=== PATIENT | female | born 1980 | race Caucasian/White ===

== ENCOUNTER 2017-09-22 16:42 | Emergency (ER) | payer MEDICAID, OTHER ==
[~2017-09-22] VITALS: Ht 175.3 cm; Wt 60.0 kg
[2017-09-22] MEDS ORDERED: IBUP-1022 PO (16:59)
[2017-09-22] MEDS ORDERED: TYLE325T5 PO (16:59)
[2017-09-22] MEDS ORDERED: PERCOCET 5MG/325MG TAB PO ONE (18:30)
[2017-09-22] MEDS ORDERED: PERC5TAB12 PO (18:35)
[2017-09-22 18:45] VITALS: BP 154/84
--- NOTE | 2017-09-23 09:51 | REP ---
RIGHT KNEE, FIVE VIEWS: There is no evidence of an acute fracture, dislocation or intrinsic bone disease. IMPRESSION: No fracture or dislocation. Signed by Migel Roberts MD 09/23/2017 05:29 P
== END 2017-09-22 18:51 | disposition home or self-care (01) ==
LOC: M ED 16:42
DX: M25.561 Pain in right knee (principal); X58.XXXA Exposure to other specified factors, initial encounter; Y92.9 Unspecified place or not applicable; Y93.39 Activity, other involving climbing, rappelling and jumping off; Y99.9 Unspecified external cause status; Z87.891 Personal history of nicotine dependence

== ENCOUNTER → 2017-09-25 | Outpatient (REF) | payer OTHER ==
[~2017-09-25] MED LIST: ASPI325T PO; IBUP-1022 PO; MORP15TASA PO; PERC5TAB12 PO; TYLE325T5 PO
[2017-09-25 16:43] LABS: WHITE BLOOD COUNT 9.3 10^3/uL (4.0-10.0)
[2017-09-25 16:44] LABS: BASO % 0.2 % (0.0-1.0); IMMATURE GRANULOCYTE % 0.3 % (0-0); LYMPH # 1.5 10^3/uL (1.5-4.5); LYMPH % 16.2 % (24.0-44.0); MEAN CORPUSCULAR HEMOGLOBIN 28.4 pg (27.0-33.0); MEAN CORPUSCULAR VOLUME 83.4 fl (80.0-96.0); MONO # 0.9 10^3/uL (0.0-0.8); MONO % 9.7 % (0.0-5.0); NEUTROPHILS # 6.8 10^3/uL (1.8-7.7); NEUTROPHILS % 73.6 % (36.0-66.0); PLATELET COUNT, AUTOMATED 201 10^3/uL (150-450); RED CELL DISTRIBUTION WIDTH 12.7 % (11.5-14.5)
[2017-09-25 17:00] LABS: URIC ACID 2.4 MG/DL (2.6-6.0)
[2017-09-25 17:34] LABS: BF MONONUCLEAR CELL % 13.2 % (0-0); BF POLYMORPHONUCLEAR CELL % 86.8 % (0-0); RBC BODY FLUID 40 10^3/uL (<2)
[2017-09-25 17:52] LABS: CRYSTALS, BODY FLUID NONE SEEN (NONE SEEN); SYNOVIAL FLUID COLOR RED (YELLOW); URIC ACID, BODY FLUID 2.7 MG/DL (NOT ESTABLISHED)
[2017-09-25 18:00] LABS: BF DIFF IF INDICATED? YES (NO); WBC BODY FLUID 20300 /uL (0-10)
[2017-09-25 19:31] LABS: ERYTHROCYTE SEDIMENTATION RATE 54 mm/hr (0-20)
[2017-09-25 22:30] LABS: CC BF DIFF EXAM UNSPUN
[2017-09-29 00:06] LABS: Lyme Disease IgG/IgM Antibodie <0.91 ISR (0.00-0.90); Lyme Disease IgM Ab Quantitati <0.80 index (0.00-0.79)
== END ==
LOC: M LABDRAW1 15:48
PROVIDERS: ATTEND Orthopaedic Surgery
DX: M25.461 Effusion, right knee (principal)

== ENCOUNTER 2017-09-26 10:41 | Inpatient (IN) | payer OTHER ==
[~2017-09-26] VITALS: Ht 175.3 cm; Wt 59.9 kg
[~2017-09-26 10:41] MED LIST changes: -ASPI325T PO; -MORP15TASA PO
[2017-09-26] MEDS ORDERED: PERCOCET 5MG/325MG TAB As Ordered ONE (11:47)
[2017-09-26] MEDS ORDERED: PERCOCET 5MG/325MG TAB PO ONE ×2 (12:00→15:00)
[2017-09-26] MEDS ORDERED: LR 1,000 ML IV ONE (12:00)
[2017-09-26] MEDS ORDERED: SCOPOLAMINE 1.5 MG TRANSDERMAL As Ordered ONE (14:43)
[2017-09-26] MEDS: ceFAZolin 1GM INJ (J0690) As Ordered ONE ×2 (14:55→15:50)
[2017-09-26] MEDS ORDERED: SCOPOLAMINE 1.5 MG TRANSDERMAL TOP ONE (15:00)
[2017-09-26] MEDS ORDERED: ceFAZolin 2 GM/D5W 50 ML IV BAG (J0690) As Ordered ONE (15:09)
[2017-09-26] MEDS ORDERED: NEOSTIGMINE 10 MG/10 ML VIAL (J2710) As Ordered ONE (15:41)
[2017-09-26] MEDS ORDERED: DESFLURANE 240 ML INHALANT As Ordered ONE (15:41)
[2017-09-26] MEDS ORDERED: MIDAZOLAM INJ 2 MG/2 ML VIAL (J2250) As Ordered ONE (15:41)
[2017-09-26] MEDS ORDERED: ROCURONIUM BROMIDE 50 MG/5 ML VIAL As Ordered ONE (15:41)
[2017-09-26] MEDS ORDERED: PROPOFOL 200 MG/20 ML VIAL As Ordered ONE (15:41)
[2017-09-26] MEDS ORDERED: GLYCOPYRROLATE INJ 0.2 MG/ML 2 ML VIAL As Ordered ONE (15:41)
[2017-09-26] MEDS ORDERED: PHENYLephrine HCL 500 MCG/5 ML (100MCG/ML) SYRINGE (J2370) As Ordered ONE (15:41)
[2017-09-26] MEDS ORDERED: fentaNYL 100 MCG/2 ML INJECTION (J3010) As Ordered ONE ×2 (15:41→15:52)
[2017-09-26] MEDS ORDERED: ONDANSETRON 4MG/2ML VIAL (J2405) As Ordered ONE (15:42)
[2017-09-26] MEDS ORDERED: KETOROLAC 60 MG/2 ML VIAL (J1885) As Ordered ONE (15:42)
[2017-09-26] MEDS ORDERED: METOCLOPRAMIDE INJ 10MG/2ML VIAL (J2765) As Ordered ONE (15:42)
[2017-09-26] MEDS ORDERED: LABETALOL HCL 100 MG/20 ML VIAL As Ordered ONE (15:52)
[2017-09-26] MEDS ORDERED: MEPERIDINE 50 MG/ML 1ML VIAL (J2175) As Ordered ONE (16:40)
[2017-09-26 16:55] LABS: URIC ACID, BODY FLUID 3.7 MG/DL (NOT ESTABLISHED)
[2017-09-26] MEDS ORDERED: MORPHINE 1MG/ML IN 0.9% NACL 100ML IV BAG As Ordered ONE (17:05)
[2017-09-26] MEDS: fentaNYL 100 MCG/2 ML INJECTION (J3010) IV PRN ×4 (17:10→17:25)
[2017-09-26] MEDS ORDERED: MORPHINE 1MG/ML IN 0.9% NACL 100ML IV BAG IV PRN (17:15)
[2017-09-26] MEDS ORDERED: ONDANSETRON 4MG/2ML VIAL (J2405) IV PRN ×2 (17:15)
[2017-09-26] MEDS ORDERED: PERCOCET 5MG/325MG TAB PO PRN (17:15)
[2017-09-26] MEDS ORDERED: LR 1,000 ML IV SCH (17:15)
[2017-09-26] MEDS ORDERED: diphenhydrAMINE INJ 50MG/ML VIAL (J1200) IV PRN (17:15)
[2017-09-26] MEDS ORDERED: NALBUPHINE HCL 10 MG/ML AMP (J2300) IV PRN (17:15)
[2017-09-26] MEDS: LR 1,000 ML IV SCH (17:15)
[2017-09-26] MEDS ORDERED: EPIDURAL/PCA KEYS XX PRN (17:15)
[2017-09-26] MEDS ORDERED: NALOXONE INJ 0.4 MG/1 ML VIAL (J2310) IV PRN (17:15)
[2017-09-26 17:24] LABS: CRYSTALS, BODY FLUID NONE SEEN (NONE SEEN); SYNOVIAL FLUID COLOR RED (YELLOW)
--- NOTE | 2017-09-26 17:37 | HPE ---
DATE OF ADMISSION: 09/26/2017 REASON FOR ADMISSION: Septic right knee. HISTORY OF PRESENT ILLNESS: She is a 37-year old, otherwise healthy female who has about 12-14 days of progressively worsening swelling of the right knee without known trauma who presented to the emergency room on 09/22/2017. X-rays did not show any fractures and then presented to our office yesterday and saw Dr. Cristino Tay and an aspiration of her knee revealed 20,000 white cells in her knee fluid and the gram stain came back showing gram positive cocci that were in clusters with many white blood cells and her knee swelling persisted. Other laboratory studies revealed a white count of 9.3 with a SED rate of 54 and a CRP of 9.65. She is being admitted for presumed right septic knee for operative irrigation and debridement and drainage. PAST MEDICAL HISTORY: She is otherwise relatively benign. She denies any past IV drug use or any other immunocompromised conditions that would predispose her this type of an infection. She has a history in her mother of rheumatoid arthritis and she is being treated for some type of a spinal infection she describes. She has not had any known recent tick bites or other infections. She is otherwise quite healthy. 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 PAST SURGICAL HISTORY: Bilateral breast augmentations. MEDICATIONS: - Depo-Provera ALLERGIES: No known drug allergies. SOCIAL HISTORY: She does not smoke or drink alcohol excessively. She is and has her young child with her in the office today. EXAMINATION: She is a pleasant female with obviously swollen right knee. Her admitting vital signs today, temperature 99.7, pulse 126, respiratory rate 18, blood pressure 123/75, oxygen saturations were 100% on room air. Lungs were clear to auscultation. Her heart was regular and I did not detect a murmur. Her extremity examination otherwise did not show any evidence of fluid in the joints or irritable joints of the shoulders, elbows, wrist, hips. Left lower extremity about the right knee was quite swollen and warm and diffusely tender. She has good pulses in her foot distally. LABORATORY DATA: Her laboratory studies again white count 9.3, hematocrit 33.2, platelets 2.1. She had a left shift with elevated neutrophils, her uric acid was low at 2.4, c-reactive protein 9.65 and then the microbiology at the time of this dictation does now show that her aspirate from the knee yesterday was showing staphylococcus aureus. The sensitivities are not back yet. IMPRESSION: She is an otherwise healthy 37-year-old female with a septic right knee and we planned for operative irrigation and debridement and drainage. I have consulted with Dr. Brooke De La O our infectious disease erp consultant who feels that covering her Kefzol after we get good definitive intraoperative cultures. For the time being is reasonable and I will be consulting with her shortly for further recommendations for IV antibiotic care, post-surgery.
[2017-09-26 18:15] VITALS: BP 133/63
[2017-09-26 18:36] LABS: BF MONONUCLEAR CELL % 25.8 % (0-0); BF POLYMORPHONUCLEAR CELL % 74.2 % (0-0)
[2017-09-26 18:39] LABS: RBC BODY FLUID 100 10^3/uL (<2); WBC BODY FLUID 110800 /uL (0-10)
[2017-09-26 18:40] LABS: BF DIFF IF INDICATED? YES (NO)
[2017-09-26 18:45] VITALS: O2SAT 95
[2017-09-26 18:51] LABS: ANION GAP 12 MEQ/L (8-16); BLOOD UREA NITROGEN 8 MG/DL (7-18); CALCIUM LEVEL 7.9 MG/DL (8.5-10.1); CARBON DIOXIDE LEVEL 23 MEQ/L (21-32); CHLORIDE LEVEL 103 MEQ/L (98-107); GLOMERULAR FILTRATION RATE > 60.0 (>60); GLUCOSE, FASTING 87 MG/DL (70-105); POTASSIUM SERUM 3.3 MEQ/L (3.5-5.1); SODIUM LEVEL 138 MEQ/L (136-145)
[2017-09-26] MEDS: VANCOMYCIN HCL 1,000 MG, VIAL MATE ADAPTER 1 EACH in D5W 250 ML IV SCH (19:34)
--- NOTE | 2017-09-26 19:48 | PHACANCOPD ---
PHARMACY VANCOMYCIN DOSING Pt Demographics Demographics Patient Age:37 , Weight: , Gender: female Adjusted Body Weight Date: 09/26/17, Adjusted Body Weight: Kg Events Past 24 Hours Events Past 24 Hours: YES: Elevation in WBC, Pending Diagnostics Vancomycin Vancomycin indication: septic arthritis Vancomycin Target Ranges: 15-20 mcg/ml Vancomycin Load Y/N: No Load Dose Date Time Vancomycin Load Dose: Date: Time: Vancomycin Dose Date: 09/26/17. Current Vancomycin Dose: [1g IV Q12H] Intermittent Dosing?: No Labs Labs Item Value Date Time Creatinine 0.20 MG/DL L 09/26/17 1803 Body Fluid WBC (Auto) 568627 /uL H 09/26/17 1606 White Blood Count 9.3 10^3/uL 09/25/17 1552 Erythrocyte Sedimentation Rate 54 mm/hr H 09/25/17 1552 C-Reactive Protein, Quantitative 9.65 MG/DL H 09/25/17 1552 Micro Microbiology 09/26/17 Blood Culture, Received Pending 09/26/17 Blood Culture, Received Pending 09/26/17 Gram Stain - Final, Resulted 09/26/17 Body Fluid Culture, Resulted Pending 09/26/17 Anaerobic Culture, Resulted Pending Creatinine Clearance Date:09/26/17. Estimated Creatinine Clearance: [>100ml/min]. Pending Labs Vancomycin trough scheduled 09/28/17 @0600, prior to the 4th dose Assessment and Plan Maintaining Current Dose?: Yes Reason for dose change: No Dose Change Pharmacist Note Pharmacist Note Date: 09/26/17. Pharmacist note: Day #1 empiric vancomycin tx initiated at 1g IV Q12H for the treatment of septic arthritis of the right knee - aiming for a goal trough of 15-20mcg/ml. Patient is currently mildly febrile, WBC WNL, and CRP, ESR, and pulse are elevated. Initial results of the synovial fluid aspirate of the rt knee show elevated WBC and few staph aureus growth, pending final culture and sensitivities. Blood culture is also pending. No PMH of MRSA or vanco use here at [facility]. A vancomycin trough has been scheduled for 09/28/17 @ 0600, prior to the 4th dose. We will continue to monitor the patient and make dose adjustments if needed. [facility] Sep 26, 2017 19:48
[2017-09-26 22:00] VITALS: BP 127/74
[2017-09-27 02:00] VITALS: BP 125/68
[2017-09-27 06:00] VITALS: BP 131/72
[2017-09-27] MEDS: VANCOMYCIN HCL 1,000 MG, VIAL MATE ADAPTER 1 EACH in D5W 250 ML IV SCH (06:06)
[2017-09-27] MEDS: LR 1,000 ML IV SCH (06:07)
[2017-09-27 06:47] LABS: MEAN CORPUSCULAR HEMOGLOBIN 28.3 pg (27.0-33.0); MEAN CORPUSCULAR HGB CONC 33.6 g/dl (32.0-36.5); MEAN CORPUSCULAR VOLUME 84.2 fl (80.0-96.0); PLATELET COUNT, AUTOMATED 184 10^3/uL (150-450); RED CELL DISTRIBUTION WIDTH 12.8 % (11.5-14.5); WHITE BLOOD COUNT 5.3 10^3/uL (4.0-10.0)
[2017-09-27 07:06] LABS: ANION GAP 8 MEQ/L (8-16); BLOOD UREA NITROGEN 6 MG/DL (7-18); CALCIUM LEVEL 8.3 MG/DL (8.5-10.1); CARBON DIOXIDE LEVEL 27 MEQ/L (21-32); CHLORIDE LEVEL 101 MEQ/L (98-107); GLOMERULAR FILTRATION RATE > 60.0 (>60); GLUCOSE, FASTING 77 MG/DL (70-105); POTASSIUM SERUM 3.1 MEQ/L (3.5-5.1); SODIUM LEVEL 136 MEQ/L (136-145)
[2017-09-27 07:26] LABS: ERYTHROCYTE SEDIMENTATION RATE 67 mm/hr (0-20)
[2017-09-27 08:03] VITALS: O2SAT 96
[2017-09-27] MEDS: MIRALAX *UNIT DOSE* 17GM PACKET PO SCH (08:56)
[2017-09-27] MEDS: MOM 30ML SUSPENSION UDC PO SCH (08:56)
[2017-09-27] MEDS: POTASSIUM CHLORIDE 10 MEQ SR TABLET PO SCH ×2 (08:56→21:46)
[2017-09-27] MEDS: ASPIRIN 325 MG TAB PO SCH (08:56)
[2017-09-27] MEDS: PERCOCET 5MG/325MG TAB PO PRN ×4 (08:57→21:47)
[2017-09-27 10:00] VITALS: BP 132/72
[2017-09-27 14:00] VITALS: BP 132/70
--- NOTE | 2017-09-27 15:25 | RO ---
DATE OF PROCEDURE: 09/26/2017 PREPROCEDURE DIAGNOSIS: Septic right knee. POSTPROCEDURE DIAGNOSIS: Septic right knee. PROCEDURE: 1. Operative arthroscopic irrigation, debridement and drainage of her right knee. 2. Operative complete arthroscopic synovectomy right knee. SURGEON: Dr. Vanessa Velasquez [employer]: ANESTHESIA: General endotracheal tube anesthesia. COMPLICATIONS: None. FINDINGS: She had grossly purulent brown-colored fluid upon aspiration of the knee, and her knee was filled with a copious amount of fibrinous exudate and synovitis consistent with this being a Staphylococcus infection. The medial and lateral menisci and cruciate ligaments were intact. The articular cartilage surfaces did not show any significant chondral damage as far as I could see. DESCRIPTION OF PROCEDURE: Antibiotics were held after the anesthesia had been provided. A tourniquet was placed on the right upper thigh but not inflated. Right lower extremity was carefully prepped and draped in the usual sterile fashion and then after appropriate time out, an insufflation portal was established superomedially with a Veress needle, and I used that to aspirate 30 mL of brown grossly purulent fluid, and I sent that into a green top, red top and lavender top as well as culture swabs and then the 2 grams of Kefzol were given. I then insufflated the knee with an irrigant solution and then the scope was introduced anterolaterally and working portals anteromedially. We introduced the arthroscope and explored the joint. She had a significant amount of hazy, cloudy fluid that took quite a bit of time of irrigating the fluid through the joint in order to get better visualization, but once all the antibiotic had run through and was intravenous, I then elevated the leg and we inflated the tourniquet and this improved our visualization. Then, I systemically performed a synovectomy, beginning in the suprapatellar pouch with a shaver through the anteromedial portal, removing all of the exudate and fibrinous material from the suprapatellar pouch and then including down through the medial gutter and then the anteromedial compartment of the knee into the medial compartment of the knee, the medial meniscus was inspected and found not to be torn. We debrided the fibrinous exudate from the anterior cruciate ligament (ACL) and the posterior cruciate ligament (PCL) and then in the anterolateral compartment, we debrided the fibrinous exudate, switched the scope at this point from the anterolateral portal to the medial portal so I could better look into the lateral gutter and used the shaver to debride the lateral gutter and remove all of the fibrinous exudate up into the suprapatellar pouch. I was quite satisfied that essentially a complete synovectomy had been performed. Once a total of two 3 liter bags and then half a third 3 liter bag was irrigated through the knee joint, under arthroscopic visualization, I introduced a #19 J-Vac drain through the anteromedial portal and pulled it into the joint from the insufflation portal and then cut it short for the appropriate distance and then secured it with a #3-0 nylon suture to the skin. The arthroscopy instruments were then removed and Adaptic with a dry sterile bulky dressing was applied and then the tourniquet was released actually prior to removing all of the arthroscopy instruments and then she was awakened from general endotracheal tube anesthesia after having tolerated the procedure well and then transferred to the recovery room in stable condition. There were no intraoperative complications.
[2017-09-27] MEDS: diphenhydrAMINE 25 MG CAP PO PRN (21:46)
[2017-09-27 22:00] VITALS: BP 135/81
[2017-09-28] MEDS: PERCOCET 5MG/325MG TAB PO PRN ×5 (03:11→22:43)
[2017-09-28] MEDS: ONDANSETRON 4 MG TAB (S0181) PO PRN (05:15)
[2017-09-28 06:00] VITALS: BP 129/59
[2017-09-28 06:30] LABS: MEAN CORPUSCULAR HEMOGLOBIN 27.9 pg (27.0-33.0); MEAN CORPUSCULAR HGB CONC 33.5 g/dl (32.0-36.5); MEAN CORPUSCULAR VOLUME 83.5 fl (80.0-96.0); PLATELET COUNT, AUTOMATED 196 10^3/uL (150-450); RED CELL DISTRIBUTION WIDTH 12.7 % (11.5-14.5); WHITE BLOOD COUNT 4.6 10^3/uL (4.0-10.0)
[2017-09-28 06:49] LABS: ANION GAP 11 MEQ/L (8-16); BLOOD UREA NITROGEN 6 MG/DL (7-18); CALCIUM LEVEL 8.4 MG/DL (8.5-10.1); CARBON DIOXIDE LEVEL 27 MEQ/L (21-32); CHLORIDE LEVEL 101 MEQ/L (98-107); CREATININE FOR GFR 0.16 MG/DL (0.55-1.02); GLOMERULAR FILTRATION RATE > 60.0 (>60); GLUCOSE, FASTING 72 MG/DL (70-105); POTASSIUM SERUM 3.7 MEQ/L (3.5-5.1); SODIUM LEVEL 139 MEQ/L (136-145)
[2017-09-28 07:03] LABS: ERYTHROCYTE SEDIMENTATION RATE 63 mm/hr (0-20)
[2017-09-28] MEDS: ASPIRIN 325 MG TAB PO SCH (08:27)
[2017-09-28] MEDS: POTASSIUM CHLORIDE 10 MEQ SR TABLET PO SCH ×2 (08:27→20:11)
[2017-09-28] MEDS: MOM 30ML SUSPENSION UDC PO SCH (08:27)
[2017-09-28] MEDS: MIRALAX *UNIT DOSE* 17GM PACKET PO SCH (08:28)
[2017-09-28] MEDS: MORPHINE 15 MG SA TAB PO SCH (20:33)
[2017-09-28 22:00] VITALS: BP 134/77
[2017-09-28] MEDS: diphenhydrAMINE 25 MG CAP PO PRN (22:44)
[2017-09-29] MEDS: PERCOCET 5MG/325MG TAB PO PRN ×4 (03:39→18:20)
[2017-09-29 06:00] VITALS: BP 134/76
[2017-09-29] MEDS: ASPIRIN 325 MG TAB PO SCH (07:42)
[2017-09-29] MEDS: POTASSIUM CHLORIDE 10 MEQ SR TABLET PO SCH ×2 (07:43→20:25)
[2017-09-29] MEDS: MORPHINE 15 MG SA TAB PO SCH ×2 (07:45→20:25)
[2017-09-29] MEDS: MIRALAX *UNIT DOSE* 17GM PACKET PO SCH (07:46)
[2017-09-29] MEDS: MOM 30ML SUSPENSION UDC PO SCH (07:46)
[2017-09-29] MEDS ORDERED: SODIUM CHLORIDE NASAL 0.65% SPRAY BTL (OCEAN) PRN (08:00)
[2017-09-29 10:21] LABS: BASO % 0.5 % (0.0-1.0); EOS % 0.9 % (0.0-3.0); IMMATURE GRANULOCYTE % 0.2 % (0-0); LYMPH # 1.4 10^3/uL (1.5-4.5); LYMPH % 32.5 % (24.0-44.0); MEAN CORPUSCULAR HEMOGLOBIN 28.3 pg (27.0-33.0); MEAN CORPUSCULAR HGB CONC 33.8 g/dl (32.0-36.5); MEAN CORPUSCULAR VOLUME 83.7 fl (80.0-96.0); MONO # 0.3 10^3/uL (0.0-0.8); MONO % 7.6 % (0.0-5.0); NEUTROPHILS # 2.5 10^3/uL (1.8-7.7); NEUTROPHILS % 58.3 % (36.0-66.0); PLATELET COUNT, AUTOMATED 236 10^3/uL (150-450); RED CELL DISTRIBUTION WIDTH 12.5 % (11.5-14.5); WHITE BLOOD COUNT 4.3 10^3/uL (4.0-10.0)
[2017-09-29 10:36] LABS: ANION GAP 6 MEQ/L (8-16); BLOOD UREA NITROGEN 5 MG/DL (7-18); CALCIUM LEVEL 8.1 MG/DL (8.5-10.1); CARBON DIOXIDE LEVEL 29 MEQ/L (21-32); CHLORIDE LEVEL 101 MEQ/L (98-107); GLOMERULAR FILTRATION RATE > 60.0 (>60); GLUCOSE, FASTING 126 MG/DL (70-105); POTASSIUM SERUM 3.7 MEQ/L (3.5-5.1); SODIUM LEVEL 136 MEQ/L (136-145)
[2017-09-29 11:02] LABS: ERYTHROCYTE SEDIMENTATION RATE 63 mm/hr (0-20)
[2017-09-29 14:00] VITALS: BP 135/65
[2017-09-29 22:00] VITALS: BP 126/76
[2017-09-30] MEDS: PERCOCET 5MG/325MG TAB PO PRN ×4 (03:09→22:51)
[2017-09-30 06:00] VITALS: BP 127/78
[2017-09-30 07:03] LABS: BASO % 0.3 % (0.0-1.0); EOS # 0.1 10^3/uL (0.0-0.50); EOS % 1.8 % (0.0-3.0); IMMATURE GRANULOCYTE % 0.3 % (0-0); LYMPH # 1.5 10^3/uL (1.5-4.5); LYMPH % 37.1 % (24.0-44.0); MEAN CORPUSCULAR HEMOGLOBIN 28.3 pg (27.0-33.0); MEAN CORPUSCULAR HGB CONC 33.7 g/dl (32.0-36.5); MEAN CORPUSCULAR VOLUME 83.8 fl (80.0-96.0); MONO # 0.4 10^3/uL (0.0-0.8); MONO % 9.5 % (0.0-5.0); PLATELET COUNT, AUTOMATED 293 10^3/uL (150-450); RED CELL DISTRIBUTION WIDTH 12.4 % (11.5-14.5); WHITE BLOOD COUNT 3.9 10^3/uL (4.0-10.0)
[2017-09-30 07:15] LABS: ANION GAP 7 MEQ/L (8-16); BLOOD UREA NITROGEN 4 MG/DL (7-18); CARBON DIOXIDE LEVEL 27 MEQ/L (21-32); CHLORIDE LEVEL 104 MEQ/L (98-107); CREATININE FOR GFR 0.16 MG/DL (0.55-1.02); GLOMERULAR FILTRATION RATE > 60.0 (>60); GLUCOSE, FASTING 83 MG/DL (70-105); SODIUM LEVEL 138 MEQ/L (136-145)
[2017-09-30 07:50] LABS: ERYTHROCYTE SEDIMENTATION RATE 58 mm/hr (0-20)
[2017-09-30] MEDS: POTASSIUM CHLORIDE 10 MEQ SR TABLET PO SCH ×2 (09:00→20:33)
[2017-09-30] MEDS: MORPHINE 15 MG SA TAB PO SCH ×2 (09:00→20:34)
[2017-09-30] MEDS: MOM 30ML SUSPENSION UDC PO SCH (09:30)
[2017-09-30] MEDS: ASPIRIN 325 MG TAB PO SCH (09:32)
[2017-09-30] MEDS: ONDANSETRON 4 MG TAB (S0181) PO PRN ×2 (09:35→15:37)
[2017-09-30] MEDS: MIRALAX *UNIT DOSE* 17GM PACKET PO SCH (09:35)
[2017-09-30 14:00] VITALS: BP 119/75
[2017-09-30 22:00] VITALS: BP 142/74
[2017-10-01] MEDS: PERCOCET 5MG/325MG TAB PO PRN ×4 (02:36→16:19)
[2017-10-01 06:00] VITALS: BP 134/78
[2017-10-01] MEDS ORDERED: PERC5TAB12 PO (07:06)
[2017-10-01] MEDS ORDERED: MORP15TASA PO (07:06)
[2017-10-01] MEDS ORDERED: ASPI325T PO (07:06)
[2017-10-01 07:54] VITALS: BP 143/86
[2017-10-01] MEDS: ASPIRIN 325 MG TAB PO SCH (08:12)
[2017-10-01] MEDS: POTASSIUM CHLORIDE 10 MEQ SR TABLET PO SCH (08:12)
[2017-10-01] MEDS: MIRALAX *UNIT DOSE* 17GM PACKET PO SCH (08:12)
[2017-10-01] MEDS: MOM 30ML SUSPENSION UDC PO SCH (08:12)
[2017-10-01] MEDS: MORPHINE 15 MG SA TAB PO SCH (08:12)
[2017-10-01 08:14] LABS: BASO % 0.2 % (0.0-1.0); EOS # 0.1 10^3/uL (0.0-0.50); IMMATURE GRANULOCYTE % 0.2 % (0-0); LYMPH # 1.6 10^3/uL (1.5-4.5); LYMPH % 26.1 % (24.0-44.0); MEAN CORPUSCULAR HEMOGLOBIN 28.2 pg (27.0-33.0); MEAN CORPUSCULAR HGB CONC 34.3 g/dl (32.0-36.5); MEAN CORPUSCULAR VOLUME 82.2 fl (80.0-96.0); MONO # 0.8 10^3/uL (0.0-0.8); MONO % 13.2 % (0.0-5.0); NEUTROPHILS # 3.5 10^3/uL (1.8-7.7); NEUTROPHILS % 59.3 % (36.0-66.0); PLATELET COUNT, AUTOMATED 351 10^3/uL (150-450); RED CELL DISTRIBUTION WIDTH 12.4 % (11.5-14.5)
[2017-10-01] MEDS: ONDANSETRON 4 MG TAB (S0181) PO PRN ×2 (08:15→16:28)
[2017-10-01 08:34] LABS: ANION GAP 7 MEQ/L (8-16); BLOOD UREA NITROGEN 8 MG/DL (7-18); CALCIUM LEVEL 9.3 MG/DL (8.5-10.1); CARBON DIOXIDE LEVEL 27 MEQ/L (21-32); CHLORIDE LEVEL 101 MEQ/L (98-107); GLUCOSE, FASTING 93 MG/DL (70-105); POTASSIUM SERUM 4.3 MEQ/L (3.5-5.1); SODIUM LEVEL 135 MEQ/L (136-145)
[2017-10-01 08:35] LABS: GLOMERULAR FILTRATION RATE > 60.0 (>60)
[2017-10-01 09:49] LABS: ERYTHROCYTE SEDIMENTATION RATE 71 mm/hr (0-20)
[2017-10-01 14:46] VITALS: BP 136/79
[2017-10-01] MEDS ORDERED: MORPHINE 4 MG/ML 1ML SYRINGE As Ordered ONE (16:24)
[2017-10-01] MEDS ORDERED: MORPHINE 4 MG/ML 1ML SYRINGE IV ONE (16:30)
--- NOTE | 2017-10-01 16:51 | CR.PDOC ---
[facility] Consultation Consultation Infectious Disease Consult Note Date of Consultation: 10/01/2017 Reason for Consultation: Antibiotic therapy for septic right knee joint Referring Provider: Dr. Rodney Foster MD PCP: Essentially none, although previously she did see Dr. Crocker at the [facility], although she has not been there for many years ( certainly greater than 3 years) HISTORY OF PRESENT ILLNESS: Mrs. Brower is a 37-year-old female who had originally presented to the emergency department for her right knee swelling. She states that she did not have any inciting event or trauma. X-rays in the emergency room were negative, she was referred to orthopedics for further evaluation. A joint aspiration was performed in the office which revealed a significant leukocytosis and eventually staph aureus was grown in culture. Sensitivities have returned, it is resistant to penicillin however it is sensitive to oxacillin. I was asked to see and evaluate the patient regarding outpatient/ long-term antibiotic therapy ALLERGIES: No known drug allergies PAST MEDICAL HISTORY: None PAST SURGICAL HISTORY: Breast augmentation and wisdom teeth extraction SOCIAL HISTORY: She one half-one pack per day for a few years, however she quit when she was 22 years old. She denies any regular alcohol use. She may occasionally have marijuana but this is also very infrequent now that she has child. She denies any IV drug use or other recreational drug use. She did have a new tattoo on the left arm about 1 month ago. FAMILY HISTORY: Mother does have rheumatoid arthritis, and interestingly she also does have what sounds like an infected joint in her spine that also grew staph aureus. Otherwise, no additional members of the family have any rheumatological diseases , musculoskeletal problems or immunological deficiencies/issues. REVIEW OF SYSTEMS: Constitutional: Currently Patient denies fevers, chills, night sweats, recent weight gain/loss. HEENT: Patient denies blurred or double vision, transient visual disturbances, postnasal drip, epistaxis, sore throat, difficulty chewing or swallowing food. Cardiovascular: Patient denies chest discomfort/pain, palpitations, exertional dyspnea, orthopnea, edema of the extremities, claudication. Respiratory: Patient denies dyspnea, wheezing, cough, hemoptysis, sputum production. Gastrointestinal: She does admit to having some nausea, however the drugs that they're providing to her in the hospital curb this quite well. She has not had any vomiting. Despite using pain medications she has not been having any issues with constipation because she has been taking the stool softeners. Musculoskeletal: She still is unable to bend the right knee more than about 5-10 , and does have significant pain with movement or weightbearing. She has been recommended to get out of bed into the chair and to use the rolling walker by ortho Endocrine: She is a very anxious person, her friends describe her as jittery, she will occasionally have heart palpitations, and she always feels warm despite the ambient temperature. PHYSICAL EXAMINATION: Vitals: Temperature 98.7, pulse 117, respiratory rate 16, blood pressure 143/86 , pulse oximetry is 98% on room air General:. Awake, alert, oriented 3. She appears to be in no acute distress at this time. She is reclined in the hospital bed. HEENT: Head normocephalic atraumatic, conjunctiva are pink, sclera are nonicteric. Hearing is grossly intact to conversation. She does have a large thyroid and palpable goiter. Respiratory: Clear to auscultation bilaterally with no wheezes, rales, or rhonchi. Cardiovascular: Tachycardic rate with regular rhythm, with no rubs, gallops, or murmur. Abdomen: Soft, nontender, nondistended, no hepatosplenomegaly appreciated. Bowel sounds present. Extremities: Her right knee is mildly swollen when compared to the left, and it does feel more warm to the touch. She does have 3 small incision sites, the location where the drain was previously (apparently removed yesterday) did have some small amount of blood under the bandage, but is not actively bleeding right now. There is no erythema or edema of either her calves. She does not have any calf tenderness. She is wearing her STEPHEN stockings. 2+ pulses in the dorsalis pedis bilaterally. No evidence of clubbing or cyanosis. MICROBIOLOGY: Right knee aspirate does reveal Staphylococcus aureus which is resistant to penicillin G, however is sensitive to everything else (including oxacillin). Blood cultures are negative after 72 hours ASSESSMENT/PLAN: 1. Septic right knee with staph aureus. Etiology unknown. She is scheduled to have a PICC line placed today, she has already received instructions on how to administer the medication and knows that she needs to do this 3 times a day. She will be sent home on IV cefazolin 1g Q8H for 4 weeks. Recommend follow-up with Dr. De La O in the office in 2 weeks. Regarding her goiter, a TSH, Free T4, and Free T3 has been ordered that will need to be followed up outpatient with her primary. My preceptor for this patient encounter was physically present in the building during the encounter and was fully available. As needed, all aspects of the patient interview, examination, medical decision making process, and medical care plan development were reviewed and approved by the preceptor. Preceptor is aware and concurs with the plan as stated in the body of this note and will attest to such by his/her cosignature. Laboratory Data Labs 24H Laboratory Tests 2 10/01/17 07:55: Immature Granulocyte % (Auto) 0.2H, White Blood Count 6.0, Red Blood Count 4.54 , Hemoglobin 12.8, Hematocrit 37.3, Mean Corpuscular Volume 82.2, Mean Corpuscular Hemoglobin 28.2, Mean Corpuscular Hemoglobin Concent 34.3, Red Cell Distribution Width 12.4, Platelet Count 351, Neutrophils (%) (Auto) 59.3, Lymphocytes (%) (Auto) 26.1, Monocytes (%) (Auto) 13.2H, Eosinophils (%) (Auto) 1.0, Basophils (%) (Auto) 0.2, Neutrophils # (Auto) 3.5, Lymphocytes # (Auto) 1.6, Monocytes # (Auto) 0.8, Eosinophils # (Auto) 0.1, Basophils # (Auto) 0.0, Immature Granulocyte # (Auto) 0.0, Nucleated Red Blood Cells % (auto) 0.0, Erythrocyte Sedimentation Rate 71H, Anion Gap 7L, Glomerular Filtration Rate > 60.0, Blood Urea Nitrogen 8#, Creatinine 0.30#L, Sodium Level 135L, Potassium Level 4.3, Chloride Level 101, Carbon Dioxide Level 27, Calcium Level 9.3, C- Reactive Protein, Quantitative 1.94H CBC/BMP Laboratory Tests 10/01/17 07:55 Red Blood Count 4.54, Mean Corpuscular Volume 82.2, Mean Corpuscular Hemoglobin 28.2, Mean Corpuscular Hemoglobin Concent 34.3, Red Cell Distribution Width 12.4 , Neutrophils (%) (Auto) 59.3, Lymphocytes (%) (Auto) 26.1, Monocytes (%) (Auto ) 13.2 H, Eosinophils (%) (Auto) 1.0, Basophils (%) (Auto) 0.2, Neutrophils # ( Auto) 3.5, Lymphocytes # (Auto) 1.6, Monocytes # (Auto) 0.8, Eosinophils # (Auto ) 0.1, Basophils # (Auto) 0.0, Calcium Level 9.3 Microbiology Microbiology 09/26/17 Blood Culture - Preliminary, Resulted No Growth after 72 hours. All specime... 09/26/17 Blood Culture - Preliminary, Resulted No Growth after 72 hours. All specime... 09/26/17 Gram Stain - Final, Complete 09/26/17 Body Fluid Culture - Final, Complete Staphylococcus Aureus 09/26/17 Anaerobic Culture - Final, Complete Allergies Coded Allergies: No Known Drug Allergy (Verified Allergy, Unknown, 09/22/17) Home Medications Scheduled Aspirin (Aspirin) 325 Mg Tab, 1 TAB PO DAILY, #21 X 3 Weeks Morphine Sulfate (Morphine Sulfate ER) 15 Mg Tabcr, 15 MG PO BID, #10 Scheduled PRN Acetaminophen (Tylenol) 325 Mg Tab, 1,000 MG PO Q4HP PRN for PAIN, (Reported) Ibuprofen (Ibuprofen) 600 Mg Tab, 800 MG PO Q6H PRN for PAIN, #30 (Reported) Oxycodone/Acetaminophen (Percocet 5-325 mg) 1 Tab Tab, 1 TAB PO Q6H PRN for PAIN , #12 Oxycodone/Acetaminophen (Percocet 5-325 mg) 1 Tab Tab, 1-2 TAB PO Q4H PRN for PAIN, #40 MISSAEL JONES DO Oct 01, 2017 14:40
[2017-10-01 20:32] LABS: FREE T4 > 8.00 NG/DL (0.76-1.46)
--- NOTE | 2017-10-02 16:29 | REP ---
Procedure: PICC line insertion with aRndall-Ritdeshawn The procedure was performed under the direct supervision of Dr. Avalos. The risks and benefits of the procedure were explained to the patient and informed consent was obtained. The left basilic vein vein was localized using ultrasound guidance. The skin was prepped and draped in a sterile fashion. 2% lidocaine was used as a local anesthetic. Using ultrasound guidance the basilic vein vein was cannulated and a 0.018 guidewire was inserted and advanced to the SVC using fluoroscopic guidance. The needle was removed and a 4.5 Niuean dilator and peel-away sheath was inserted over the guide wire. A 4.5 Niuean single lumen catheter was cut to length of 46 cm. The dilator was removed and the catheter was inserted over the guide wire with the tip ending in the SVC. The peel-away sheath was removed and the catheter was flushed with heparinized saline as per Hospital protocol. The catheter was affixed to the skin and a sterile dressing was applied. The the patient tolerated the procedure well and there were no immediate complications. 0.4 minutes of fluoro time was utilized for this procedure. Reviewed by DALY Coulter 10/02/2017 04:13 PSigned by Max Avalos MD 10/02/2017 04:20 P
--- NOTE | 2017-10-04 10:13 | DSES ---
DATE OF ADMISSION: 09/26/2017 DATE OF DISCHARGE: 10/01/2017 ATTENDING PHYSICIAN: Dr. Vanessa Velasquez ADMITTING DIAGNOSIS: Septic right knee. DISCHARGE DIAGNOSIS: Septic right knee, status post operative arthroscopic irrigation, debridement and drainage with synovectomy. HISTORY: The patient is an otherwise healthy 37-year-old female with progressively worsening swelling of the right knee. There was no history of trauma. On 09/25/2017, her knee was aspirated and revealed 20,000 white cells. Gram-stain came back showing Gram-positive cocci in clusters. Knee swelling persisted. She was admitted for presumed right septic knee for operative irrigation, debridement and drainage. OPERATION PERFORMED: Arthroscopic irrigation, debridement, drainage, and synovectomy of the right knee. HOSPITAL COURSE: The patient underwent an arthroscopic irrigation, debridement, drainage and synovectomy of her right knee under general endotracheal tube anesthesia. Surgery was uneventful. Hospital course was without complication and she was treated appropriately with IV antibiotics. She had a peripherally inserted central catheter (PICC) line placed and received instructions on how to administer her medications three times daily. She was sent home on IV cefazolin. She does have followup with the infectious disease physician, Dr. De La O, in 2 weeks. She will followup in our office within the next week for wound check. She is encouraged to contact our office sooner if there is any increased pain, drainage, return of swelling, fever greater than 101 degrees or any other concern. Please see medical record for additional details. [facility] CENTERBilly
== END 2017-10-01 17:20 | disposition home health service (06) | DRG 313 ==
LOC: M OR 11:13 → M MS5PR 18:10
PROVIDERS: ADMIT Orthopaedic Surgery; ATTEND Orthopaedic Surgery
PROC: 0SBC4ZZ Excision of Right Knee Joint, Percutaneous Endoscopic Approach (ICD-10-PCS; 2017-09-26)
PROC: 02HV33Z Insertion of Infusion Device into Superior Vena Cava, Percutaneous Approach (ICD-10-PCS; principal; 2017-10-01)
DX: M00.861 Arthritis due to other bacteria, right knee (principal); B95.7 Other staphylococcus as the cause of diseases classified elsewhere; E04.9 Nontoxic goiter, unspecified

== ENCOUNTER → 2017-10-08 | Outpatient (REF) | payer OTHER ==
[~2017-10-08] MED LIST changes: +ASPI325T PO; +MORP15TASA PO
[2017-10-08 18:34] LABS: BASO % 0.6 % (0.0-1.0); EOS % 0.3 % (0.0-3.0); LYMPH # 1.5 10^3/uL (1.5-4.5); LYMPH % 45.9 % (24.0-44.0); MEAN CORPUSCULAR HEMOGLOBIN 27.9 pg (27.0-33.0); MEAN CORPUSCULAR HGB CONC 33.2 g/dl (32.0-36.5); MEAN CORPUSCULAR VOLUME 84.1 fl (80.0-96.0); MONO # 0.4 10^3/uL (0.0-0.8); MONO % 11.6 % (0.0-5.0); NEUTROPHILS # 1.4 10^3/uL (1.8-7.7); NEUTROPHILS % 41.6 % (36.0-66.0); PLATELET COUNT, AUTOMATED 308 10^3/uL (150-450); RED CELL DISTRIBUTION WIDTH 12.5 % (11.5-14.5); WHITE BLOOD COUNT 3.3 10^3/uL (4.0-10.0)
[2017-10-08 18:59] LABS: ERYTHROCYTE SEDIMENTATION RATE 68 mm/hr (0-20)
== END ==
LOC: M LAB REF 15:21
PROVIDERS: ATTEND Internal Medicine Infectious Disease
DX: B95.8 Unspecified staphylococcus as the cause of diseases classified elsewhere (principal)

== ENCOUNTER → 2017-10-15 | Outpatient (REF) | payer OTHER ==
[2017-10-15 13:25] LABS: BASO % 0.5 % (0.0-1.0); EOS # 0.1 10^3/uL (0.0-0.50); EOS % 2.2 % (0.0-3.0); IMMATURE GRANULOCYTE % 0.3 % (0-0); LYMPH # 1.6 10^3/uL (1.5-4.5); LYMPH % 42.7 % (24.0-44.0); MEAN CORPUSCULAR HEMOGLOBIN 28.3 pg (27.0-33.0); MEAN CORPUSCULAR HGB CONC 33.6 g/dl (32.0-36.5); MEAN CORPUSCULAR VOLUME 84.3 fl (80.0-96.0); MONO # 0.4 10^3/uL (0.0-0.8); MONO % 10.7 % (0.0-5.0); NEUTROPHILS # 1.6 10^3/uL (1.8-7.7); NEUTROPHILS % 43.6 % (36.0-66.0); PLATELET COUNT, AUTOMATED 238 10^3/uL (150-450); RED CELL DISTRIBUTION WIDTH 13.1 % (11.5-14.5); WHITE BLOOD COUNT 3.7 10^3/uL (4.0-10.0)
[2017-10-15 13:58] LABS: ERYTHROCYTE SEDIMENTATION RATE 63 mm/hr (0-20)
[2017-10-15 14:36] LABS: PERCENT SATURATION 25.6 % (13.2-45.0); TOTAL IRON BINDING CAPACITY 176 UG/DL (250-450)
== END ==
LOC: M LAB REF 12:19
PROVIDERS: ATTEND Internal Medicine Infectious Disease
DX: B95.8 Unspecified staphylococcus as the cause of diseases classified elsewhere (principal)

== ENCOUNTER → 2017-10-22 | Outpatient (REF) | payer OTHER ==
[2017-10-22 12:12] LABS: BASO % 0.8 % (0.0-1.0); EOS # 0.1 10^3/uL (0.0-0.50); EOS % 3.2 % (0.0-3.0); LYMPH # 1.2 10^3/uL (1.5-4.5); MEAN CORPUSCULAR HEMOGLOBIN 29.1 pg (27.0-33.0); MEAN CORPUSCULAR HGB CONC 33.9 g/dl (32.0-36.5); MONO # 0.3 10^3/uL (0.0-0.8); MONO % 12.6 % (0.0-5.0); NEUTROPHILS % 34.4 % (36.0-66.0); PLATELET COUNT, AUTOMATED 279 10^3/uL (150-450); RED CELL DISTRIBUTION WIDTH 14.3 % (11.5-14.5); WHITE BLOOD COUNT 2.5 10^3/uL (4.0-10.0)
[2017-10-22 12:32] LABS: ERYTHROCYTE SEDIMENTATION RATE 51 mm/hr (0-20)
[2017-10-22 12:35] LABS: NEUTROPHILS # 0.9 10^3/uL (1.8-7.7); POSITIVE DIFF POS FLAG
== END ==
LOC: M LAB REF 11:57
PROVIDERS: ATTEND Internal Medicine Infectious Disease
DX: B95.8 Unspecified staphylococcus as the cause of diseases classified elsewhere (principal)

== ENCOUNTER 2017-10-31 07:16 | Emergency (ER) | payer OTHER ==
[2017-10-31] MEDS: NS 1,000 ML IV (08:00)
[2017-10-31 08:15] LABS: MEAN CORPUSCULAR HEMOGLOBIN 28.6 pg (27.0-33.0); MEAN CORPUSCULAR HGB CONC 33.7 g/dl (32.0-36.5); MEAN CORPUSCULAR VOLUME 84.7 fl (80.0-96.0); PLATELET COUNT, AUTOMATED 234 10^3/uL (150-450); RED CELL DISTRIBUTION WIDTH 14.3 % (11.5-14.5)
[2017-10-31 08:19] LABS: POS COUNT POS FLAG; POSITIVE DIFF POS FLAG; POSITIVE MORPH POS FLAG; WBC SCAT POS FLAG; WHITE BLOOD COUNT 1.5 10^3/uL (4.0-10.0)
[2017-10-31 08:31] LABS: ADD MANUAL DIFFER YES; DIFF SLIDE NUMBER 127
[2017-10-31 08:36] LABS: BASOPHILS 1 % (0-4); EOSINOPHILS 3 % (0-5)
[2017-10-31 08:37] LABS: POLYCHROMASIA 1+
[2017-10-31 08:46] LABS: ANION GAP 8 MEQ/L (8-16); BLOOD UREA NITROGEN 14 MG/DL (7-18); CALCIUM LEVEL 8.8 MG/DL (8.5-10.1); CARBON DIOXIDE LEVEL 24 MEQ/L (21-32); CHLORIDE LEVEL 106 MEQ/L (98-107); CREATININE FOR GFR 0.41 MG/DL (0.55-1.02); GLOMERULAR FILTRATION RATE > 60.0 (>60); GLUCOSE, FASTING 123 MG/DL (70-105); POTASSIUM SERUM 3.9 MEQ/L (3.5-5.1); SODIUM LEVEL 138 MEQ/L (136-145)
[2017-10-31 08:52] LABS: ERYTHROCYTE SEDIMENTATION RATE 50 mm/hr (0-20)
[2017-10-31] MEDS: BICILLIN L-A 2,400,000 UNIT/4 ML SYRINGE (J0561-24)PENICILLIN G BENZATINE IM (09:20)
== END 2017-10-31 10:17 | disposition home or self-care (01) ==
LOC: M ED 07:16
DX: J02.0 Streptococcal pharyngitis (principal); D72.819 Decreased white blood cell count, unspecified; R00.2 Palpitations; E05.00 Thyrotoxicosis with diffuse goiter without thyrotoxic crisis or storm; F41.9 Anxiety disorder, unspecified; Z87.891 Personal history of nicotine dependence; Z79.3 Long term (current) use of hormonal contraceptives; Z79.899 Other long term (current) drug therapy
CPT/HCPCS: J0561

== ENCOUNTER → 2017-10-31 | Outpatient (REF) | payer OTHER ==
[2017-11-02 10:37] LABS: THYROID PEROXIDASE ANTIBODY > 1300.0 U/ML (<60.0)
== END ==
LOC: M LAB REF 09:42
DX: E05.00 Thyrotoxicosis with diffuse goiter without thyrotoxic crisis or storm (principal)
CPT/HCPCS: 86376

== ENCOUNTER → 2017-11-08 | Outpatient (CLI) | payer OTHER | LOC: M RAD 10:09 | DX: E05.00 Thyrotoxicosis with diffuse goiter without thyrotoxic crisis or storm (principal) ==

== ENCOUNTER → 2017-11-27 | Outpatient (REF) | payer OTHER ==
[2017-11-27 15:30] LABS: BASO % 0.8 % (0.0-1.0); EOS # 0.1 10^3/uL (0.0-0.50); EOS % 2.1 % (0.0-3.0); HEMATOCRIT 33.6 % (36.0-47.0); HEMOGLOBIN 11.1 g/dl (12.0-16.0); IMMATURE GRANULOCYTE % 0.3 % (0-0); LYMPH # 1.8 10^3/uL (1.5-4.5); MEAN CORPUSCULAR VOLUME 84.6 fl (80.0-96.0); MONO # 0.3 10^3/uL (0.0-0.8); MONO % 8.2 % (0.0-5.0); NEUTROPHILS # 1.5 10^3/uL (1.8-7.7); NEUTROPHILS % 40.6 % (36.0-66.0); PLATELET COUNT, AUTOMATED 254 10^3/uL (150-450); RED BLOOD COUNT 3.97 10^6/uL (4.00-5.40); RED CELL DISTRIBUTION WIDTH 14.9 % (11.5-14.5); WHITE BLOOD COUNT 3.8 10^3/uL (4.0-10.0)
[2017-11-27 15:55] LABS: CONTROL LINE HCG INT CTR LINE PRESENT; HCG, SERUM QUALITATIVE NEGATIVE (NEGATIVE)
== END ==
LOC: M LABDRAW1 13:42
DX: D70.8 Other neutropenia (principal); E05.00 Thyrotoxicosis with diffuse goiter without thyrotoxic crisis or storm

== ENCOUNTER → 2017-11-29 | Outpatient (CLI) | payer OTHER | LOC: M RAD 11:00 | DX: E05.00 Thyrotoxicosis with diffuse goiter without thyrotoxic crisis or storm (principal) | CPT/HCPCS: A9517 ==

== ENCOUNTER → 2018-01-24 | Outpatient (CLI) | payer OTHER ==
[2018-01-24 14:46] LABS: FREE T4 0.54 NG/DL (0.76-1.46)
[2018-01-24 14:46] LABS: THYROID STIMULATING HORMONE < 0.005 uIU/ML (0.358-3.740)
== END ==
LOC: M LAB 13:41
DX: E05.00 Thyrotoxicosis with diffuse goiter without thyrotoxic crisis or storm (principal)
CPT/HCPCS: 84443

== ENCOUNTER → 2018-02-14 | Outpatient (CLI) | payer OTHER ==
[2018-02-14 09:51] LABS: THYROID STIMULATING HORMONE 0.015 uIU/ML (0.358-3.740)
[2018-02-14 10:19] LABS: FREE T4 0.73 NG/DL (0.76-1.46)
== END ==
LOC: M LAB 08:35
DX: E05.00 Thyrotoxicosis with diffuse goiter without thyrotoxic crisis or storm (principal)
CPT/HCPCS: 84443

== ENCOUNTER → 2018-03-07 | Outpatient (CLI) | payer OTHER ==
[2018-03-07 12:01] LABS: FREE T4 1.16 NG/DL (0.76-1.46); THYROID STIMULATING HORMONE < 0.005 uIU/ML (0.358-3.740)
== END ==
LOC: M LAB 10:55
DX: E05.00 Thyrotoxicosis with diffuse goiter without thyrotoxic crisis or storm (principal)
CPT/HCPCS: 84443

== ENCOUNTER → 2018-05-16 | Outpatient (REF) | payer OTHER ==
[2018-05-16 21:18] LABS: CHLAMYDIA DNA AMPLIFICATION NEGATIVE (NEGATIVE); GC DNA AMPLIFICATION NEGATIVE (NEGATIVE)
== END ==
LOC: M SFHCPLAZ 17:22
DX: R30.0 Dysuria (principal)
CPT/HCPCS: 87186

== ENCOUNTER → 2019-06-23 | Outpatient (CLI) | payer OTHER ==
[~2019-06-23] MED LIST changes: +ASPI-1 PO; -ASPI325T PO; +CEFAD50CA; +DEPO150I IM; +FERR32TA; +METO1TAB7; +PROP50TA3 PO
[2019-06-23 15:16] LABS: FREE T4 1.49 NG/DL (0.76-1.46); THYROID STIMULATING HORMONE < 0.005 uIU/ML (0.358-3.740)
== END ==
LOC: M LAB 13:41
PROVIDERS: ATTEND Hospitalist
DX: E05.90 Thyrotoxicosis, unspecified without thyrotoxic crisis or storm (principal)

== ENCOUNTER → 2019-07-22 | Outpatient (CLI) | payer OTHER | LOC: M LAB 14:19 | PROVIDERS: ATTEND Hospitalist | DX: E03.2 Hypothyroidism due to medicaments and other exogenous substances (principal) ==

== ENCOUNTER → 2019-09-10 | Outpatient (CLI) | payer OTHER ==
[2019-09-10 17:00] LABS: FREE T4 1.47 NG/DL (0.76-1.46); THYROID STIMULATING HORMONE < 0.005 uIU/ML (0.358-3.740)
== END ==
LOC: M LAB 14:08
PROVIDERS: ATTEND Hospitalist
DX: E03.2 Hypothyroidism due to medicaments and other exogenous substances (principal)

== ENCOUNTER → 2019-12-10 | Outpatient (CLI) | payer OTHER ==
[2019-12-10 15:00] LABS: HEMATOCRIT 40.6 % (36.0-47.0); HEMOGLOBIN 13.5 g/dl (12.0-15.5); MEAN CORPUSCULAR HEMOGLOBIN 31.4 pg (27.0-33.0); MEAN CORPUSCULAR HGB CONC 33.3 g/dl (32.0-36.5); MEAN CORPUSCULAR VOLUME 94.4 fl (80.0-96.0); PLATELET COUNT, AUTOMATED 172 10^3/uL (150-450); WHITE BLOOD COUNT 5.8 10^3/uL (4.0-10.0)
[2019-12-10 15:26] LABS: BLOOD UREA NITROGEN 11 MG/DL (7-18); GLUCOSE, FASTING 79 MG/DL (70-100)
[2019-12-10 15:27] LABS: CALCIUM LEVEL 8.3 MG/DL (8.5-10.1); CARBON DIOXIDE LEVEL 29 MEQ/L (21-32); CHLORIDE LEVEL 109 MEQ/L (98-107); FERRITIN 24 NG/ML (8-252); FREE T4 1.66 NG/DL (0.76-1.46); GLOMERULAR FILTRATION RATE > 60.0 (>60); IRON (FE) 46 UG/DL (50-170); PERCENT SATURATION 12.6 % (13.2-45.0); POTASSIUM SERUM 3.7 MEQ/L (3.5-5.1); SODIUM LEVEL 142 MEQ/L (136-145); THYROID STIMULATING HORMONE < 0.005 uIU/ML (0.358-3.740); TOTAL IRON BINDING CAPACITY 364 UG/DL (250-450)
== END ==
LOC: M LAB 14:06
PROVIDERS: ATTEND Hospitalist
DX: R53.83 Other fatigue (principal)

== ENCOUNTER → 2023-02-02 | Outpatient (REF) | payer OTHER ==
[~2023-02-02] MED LIST changes: +CEFA500C2; -CEFAD50CA
== END ==
LOC: M SFHCPLAZ 09:18
PROVIDERS: ATTEND Family Medicine
DX: Z53.9 Procedure and treatment not carried out, unspecified reason (principal)

== ENCOUNTER → 2023-02-02 | Outpatient (CLI) | payer OTHER ==
[2023-02-02 15:22] LABS: BASO # 0.1 10^3/uL (0.0-0.2); BASO % 1.5 % (0.0-1.0); EOS # 0.1 10^3/uL (0.0-0.5); EOS % 1.9 % (0.0-3.0); HEMATOCRIT 41.3 % (36.0-47.0); HEMOGLOBIN 13.9 g/dl (12.0-15.5); LYMPH # 2.1 10^3/uL (1.5-5.0); LYMPH % 39.7 % (24.0-44.0); MEAN CORPUSCULAR HEMOGLOBIN 32.9 pg (27.0-33.0); MEAN CORPUSCULAR HGB CONC 33.7 g/dl (32.0-36.5); MEAN CORPUSCULAR VOLUME 97.6 fl (80.0-96.0); MONO # 0.4 10^3/uL (0.0-0.8); MONO % 7.2 % (2.0-8.0); NEUTROPHILS # 2.7 10^3/uL (1.5-8.5); NEUTROPHILS % 49.5 % (36.0-66.0); PLATELET COUNT, AUTOMATED 226 10^3/uL (150-450); RED BLOOD COUNT 4.23 10^6/uL (4.00-5.40); WHITE BLOOD COUNT 5.4 10^3/uL (4.0-10.0)
[2023-02-02 15:44] LABS: PERCENT SATURATION 29.8 % (13.2-45.0)
[2023-02-02 15:46] LABS: THYROID STIMULATING HORMONE 5.037 uIU/ML (0.55-4.78)
[2023-02-02 15:47] LABS: FERRITIN 19.6 NG/ML (7.3-270.7)
== END ==
LOC: M PLALAB 09:46
PROVIDERS: ATTEND Student in an Organized Health Care Education/Training Program
DX: E03.2 Hypothyroidism due to medicaments and other exogenous substances (principal)

== ENCOUNTER → 2023-03-12 | Outpatient (CLI) | payer OTHER | LOC: M PLALAB 16:06 | PROVIDERS: ATTEND Student in an Organized Health Care Education/Training Program | DX: E03.2 Hypothyroidism due to medicaments and other exogenous substances (principal) ==

== ENCOUNTER → 2023-03-13 | Outpatient (REF) | payer OTHER | LOC: M SFHCPLAZ 13:22 | PROVIDERS: ATTEND Family Medicine | DX: Z53.21 Procedure and treatment not carried out due to patient leaving prior to being seen by health care provider (principal) ==

== ENCOUNTER → 2023-04-24 | Outpatient (CLI) | payer OTHER | LOC: M PLALAB 16:20 | PROVIDERS: ATTEND Student in an Organized Health Care Education/Training Program | DX: E03.2 Hypothyroidism due to medicaments and other exogenous substances (principal) ==

== ENCOUNTER → 2023-11-02 | Outpatient (CLI) | payer OTHER ==
[2023-11-02 17:46] LABS: C REACTIVE PROTEIN QUANTITATIV < 0.40 MG/DL (<1.0)
[2023-11-02 17:47] LABS: LDH LACTATE DEHYDROGENASE 148 U/L (120-246)
[2023-11-02 18:15] LABS: HIV 1&2 SCREEN NEGATIVE (NEGATIVE)
== END ==
LOC: M PLALAB 16:17
PROVIDERS: ATTEND Student in an Organized Health Care Education/Training Program
DX: K11.20 Sialoadenitis, unspecified (principal)

== ENCOUNTER → 2023-11-02 | Outpatient (CLI) | payer BC, OTHER | LOC: M RAD 15:00 | PROVIDERS: ATTEND Student in an Organized Health Care Education/Training Program | DX: K11.20 Sialoadenitis, unspecified (principal); R59.0 Localized enlarged lymph nodes ==

== ENCOUNTER → 2023-11-12 | Outpatient (CLI) | payer OTHER | LOC: M RAD 10:40 | PROVIDERS: ATTEND Student in an Organized Health Care Education/Training Program | DX: K11.20 Sialoadenitis, unspecified (principal) ==

== ENCOUNTER → 2024-02-12 | Outpatient (CLI) | payer OTHER ==
[2024-02-12 14:34] LABS: CHOLESTEROL RISK RATIO 2.84 (<5); HDL CHOLESTEROL 43.3 MG/DL (>40); LDL CHOLESTEROL 65.5 MG/DL (<100); NON-HDL-C 79.7 MG/DL; THYROID STIMULATING HORMONE 1.46 uIU/ML (0.55-4.78)
[2024-02-12 15:37] LABS: HEMOGLOBIN A1c 4.8 % (4.0-6.0)
== END ==
LOC: M PLALAB 09:26
PROVIDERS: ATTEND Student in an Organized Health Care Education/Training Program
DX: Z13.1 Encounter for screening for diabetes mellitus (principal)

== ENCOUNTER → 2024-03-26 | Outpatient (CLI) | payer OTHER ==
[2024-03-26 11:48] LABS: HEMOGLOBIN A1c 4.9 % (4.0-6.0)
[2024-03-26 11:51] LABS: CHOLESTEROL RISK RATIO 2.87 (<5); HDL CHOLESTEROL 51.9 MG/DL (>40); LDL CHOLESTEROL 86.1 MG/DL (<100); NON-HDL-C 97.1 MG/DL
[2024-03-26 11:54] LABS: THYROID STIMULATING HORMONE 1.779 uIU/ML (0.55-4.78)
== END ==
LOC: M PLALAB 08:44
PROVIDERS: ATTEND Student in an Organized Health Care Education/Training Program
DX: Z13.1 Encounter for screening for diabetes mellitus (principal); Z13.220 Encounter for screening for lipoid disorders; E89.0 Postprocedural hypothyroidism

== ENCOUNTER → 2024-05-06 | Outpatient (CLI) | payer OTHER | LOC: M PLALAB 13:50 | PROVIDERS: ATTEND Student in an Organized Health Care Education/Training Program | DX: E89.0 Postprocedural hypothyroidism (principal); R09.81 Nasal congestion ==

== ENCOUNTER → 2024-05-16 | Outpatient (CLI) | payer OTHER | LOC: M WHC 07:28 | PROVIDERS: ATTEND Nurse Practitioner Family | DX: Z12.31 Encounter for screening mammogram for malignant neoplasm of breast (principal) ==

== ENCOUNTER → 2024-05-16 | Outpatient (REF) | payer OTHER | LOC: M SFHCWAGY 13:06 | PROVIDERS: ATTEND Nurse Practitioner Family | DX: Z12.4 Encounter for screening for malignant neoplasm of cervix (principal); Z01.419 Encounter for gynecological examination (general) (routine) without abnormal findings; Z77.9 Other contact with and (suspected) exposures hazardous to health ==

== ENCOUNTER → 2024-09-03 | Outpatient (REF) | payer OTHER | LOC: M SFHCPLAZ 07:45 | PROVIDERS: ATTEND Family Medicine | DX: E89.0 Postprocedural hypothyroidism (principal) ==

== ENCOUNTER → 2025-10-28 | Outpatient (CLI) | payer OTHER ==
[~2025-10-28] MED LIST changes: -IBUP-1022 PO; +IBUP600T42 PO; +MORP-138 PO; -MORP15TASA PO
[2025-10-28 10:43] LABS: PLATELET COUNT, AUTOMATED 229 10^3/uL (150-450)
[2025-10-28 11:08] LABS: ESTIMATED AVERAGE GLUCOSE 97.0 MG/DL (60-110)
[2025-10-28 11:11] LABS: ALT/SGPT 18 U/L (7.0-40); AST/SGOT 23 U/L (<34); CALCIUM LEVEL 9.0 MG/DL (8.5-10.1); CARBON DIOXIDE LEVEL 28 MMOL/L (20-31); CHLORIDE LEVEL 104 MMOL/L (98-107); CHOLESTEROL LEVEL 141 MG/DL (<200); CHOLESTEROL RISK RATIO 2.48 (<5); CREATININE FOR GFR 0.67 MG/DL (0.55-1.30); FREE T4 1.04 NG/DL (0.89-1.76); GLOMERULAR FILTRATION RATE > 90.0 (>58); IRON (FE) 116 UG/DL (50-170); LDL CHOLESTEROL 74.5 MG/DL (<100); NON-HDL-C 84.3 MG/DL; PERCENT SATURATION 33.3 % (13.2-45.0); POTASSIUM SERUM 3.9 MMOL/L (3.5-5.1); SODIUM LEVEL 140 MMOL/L (136-145); TRIGLYCERIDES LEVEL 49 MG/DL (<150)
[2025-10-28 11:13] LABS: VITAMIN B12 LEVEL 821 PG/ML (211-911)
== END ==
LOC: M PLALAB 09:34
PROVIDERS: ATTEND Student in an Organized Health Care Education/Training Program
DX: Z00.00 Encounter for general adult medical examination without abnormal findings (principal); D50.9 Iron deficiency anemia, unspecified; E89.0 Postprocedural hypothyroidism